=== PATIENT | female | born 1995 | race Caucasian/White ===

== ENCOUNTER 2021-01-26 10:51 | Emergency (ER) | payer OTHER ==
[2021-01-26 12:25] LABS: BILIRUBIN NEGATIVE (NEGATIVE); BLOOD NEGATIVE Ery/uL (NEGATIVE); CLARITY CLEAR (CLEAR); COLOR YELLOW (YELLOW); GLUCOSE (U) NORMAL (NORMAL); LEUKOCYTES NEGATIVE Leu/uL (NEGATIVE); NITRITE NEGATIVE (NEGATIVE); PROTEIN NEGATIVE (NEGATIVE); SPECIFIC GRAVITY <=1.005 (1.001-1.030); UROBILINOGEN 0.2 mg/dL (0.2-1.0); pH 6.5 (5.0-9.0)
[2021-01-26 12:25] LABS: BASOPHIL 0.2 % (0-2); EOSINOPHIL 0.6 % (0-5); HCT 42.3 % (37.0-47.0); LYMPHOCYTE 18.4 % (15-48); MCH 23.4 pg (25.0-31.0); MCHC 30.7 g/dL (32.0-36.0); MCV 76.2 fL (78.0-100.0); MONOCYTE 5.9 % (0-12); MPV 9.3 fL (6.0-9.5); NEUTROPHIL 74.3 % (41-80); NRBC 0; PLT 402 K/uL (150-400); RBC 5.55 M/uL (4.20-5.40); RDW 17.1 % (11.5-14.0); WBC 12.8 K/uL (4.0-10.5)
[2021-01-26 13:00] LABS: BUN/CREAT RATIO (CALC) 18.6 RATIO; CREATININE 0.59 mg/dL (0.51-0.95); POTASSIUM 3.6 mmol/L (3.5-5.1)
== END 2021-01-26 14:30 | disposition home or self-care (01) ==
LOC: FER 10:51
PROVIDERS: Nurse Practitioner Family
DX: M54.2 Cervicalgia (principal)
CPT/HCPCS: 36415; 70491; 80048; 81003; 85025; J7030